=== PATIENT | male | born 1985 | race Caucasian/White ===

== ENCOUNTER 2023-09-20 19:36 | Emergency (ER) | payer SELFPAY ==
[2023-09-20 19:41] VITALS: BP 138/88; PULSE 109; RESP 18; TEMP 36.4; O2SAT 99; BMI 41.1
--- NOTE | 2023-09-20 19:47 | US_ITS ---
[facility] [id number] Patient Name: IBRAHIMA CHEN MRN: [id number] date: 1985 Sex: M Assigned Patient Location: ER Current Patient Location: ED.MAIN Accession/Order Number: [id number] Exam Date: 09/20/2023 20:07 Report Date: 09/20/2023 21:20 At the request of: NELA CHERRY Procedure: US venous doppler LE LT US venous doppler LE LT, 09/20/2023 8:07 PM EST INDICATION: dvt COMPARISON: None available at the time of dictation. FINDINGS: Left lower extremity venous duplex The visualized veins of the venous system of the left lower extremity are within normal limits with regard to spontaneous flow, phasic flow, augmentation and compression. No intraluminal thrombus formation is identified. No superficial venous thrombus is present. US/US venous doppler LE LT IMPRESSION: No evidence of acute deep or superficial venous thrombosis. Electronically authenticated by: RODGER QUINONEZ Date: 09/20/2023 21:20
--- NOTE | 2023-09-20 20:06 | ED.LOWEXI1 ---
HPI - Extremity Injury (Lower) General Chief Complaint: Extremity Injury, Lower Stated Complaint: BLOOD CLOT L FOOT Time Seen by Provider: 09/20/23 19:38 Source: patient Mode of arrival: walk-in History of Present Illness HPI Narrative: Patient is a 37-year-old male who presents to the emergency department with primary concern that he may have a blood clot in his left lower extremity. He states he has chronic intermittent swelling to the lower extremities, he had an ankle fracture with surgical hardware placed approximately 10 years ago to the left lower extremity. He states it is typical for him to have improvement of the swelling on waking after his legs have been elevated. He states for the last 2 weeks he has had no pain, redness or drainage from the left leg but his foot and ankle have been persistently swollen. He admits that today, his swelling is the best that it has been in the last 2 weeks. No medications taken prior to arrival. Related Data Previous Rx's Medication Instructions Recorded ketorolac 10 mg tablet 10 mg PO TID PRN pain #10 tabs 09/20/23 Allergies Allergy/AdvReac Type Severity Reaction Status Date / Time No Known Drug Allergies Allergy Verified 09/20/23 19:46 Review of Systems ROS Constitutional Denies: fever or chills Ears, nose, mouth, and throat Denies: throat pain or nasal congestion Cardiovascular Denies: chest pain Respiratory Denies: shortness of breath or cough Gastrointestinal Denies: nausea or vomiting Musculoskeletal Reports: extremity swelling; Denies: back pain, neck pain or extremity pain Integumentary/Breast Denies: rash Neurological Denies: headache Hematologic/Lymphatic Denies: easy bruising or easy bleeding Exam Narrative Exam Narrative: Gen.: Awake, alert, in no distress Head: Normocephalic, atraumatic ENT: Moist mucous membranes Respiratory: No respiratory distress Extremities: Moves extremities equally, left ankle is diffusely more swollen than the right ankle, there is no pitting edema, no erythema or open wounds. Calves are soft and nontender bilaterally. Psych: Normal mood and affect Neuro: No focal neuro deficit Skin: Warm, dry, intact Constitutional Vital Signs, click to edit/add: Last Vital Signs Temp 97.6 F 09/20/23 19:41 Pulse 109 H 09/20/23 19:41 Resp 18 09/20/23 19:41 BP 138/88 09/20/23 19:41 Pulse Ox 99 09/20/23 19:41 O2 Del Method Room Air 09/20/23 19:41 Course Vital Signs Vital signs: Vital Signs Temperature 97.6 F 09/20/23 19:41 Pulse Rate 109 H 09/20/23 19:41 Respiratory Rate 18 09/20/23 19:41 Blood Pressure 138/88 09/20/23 19:41 Pulse Oximetry 99 09/20/23 19:41 Oxygen Delivery Method Room Air 09/20/23 19:41 Temperature 97.6 F 09/20/23 19:41 Pulse Rate 109 H 09/20/23 19:41 Respiratory Rate 18 09/20/23 19:41 Blood Pressure 138/88 09/20/23 19:41 Pulse Oximetry 99 09/20/23 19:41 Oxygen Delivery Method Room Air 09/20/23 19:41 MDM - Extremity Injury (Lower) MDM Narrative Medical decision making narrative: Ultrasound with no evidence of DVT, labs show elevated inflammatory markers, suspect lower extremity swelling is due to previous surgical hardware and inflammation. Patient will be started on anti-inflammatories for home. Referred to podiatry. Return to the ER if symptoms change or worsen. Medical Records Attestation: I reviewed the patient's medical records. Lab Data Attestation: I reviewed the patient's lab results. Imaging Data Venous US: Attestation: I have reviewed the pertinent imaging results. Radiologist's impression: Procedure: US venous doppler LE LT US venous doppler LE LT, 09/20/2023 8:07 PM EST INDICATION: dvt COMPARISON: None available at the time of dictation. FINDINGS: Left lower extremity venous duplex The visualized veins of the venous system of the left lower extremity are within normal limits with regard to spontaneous flow, phasic flow, augmentation and compression. No intraluminal thrombus formation is identified. No superficial venous thrombus is present. IMPRESSION: No evidence of acute deep or superficial venous thrombosis. Electronically authenticated by: RODGER QUINONEZ Date: 09/20/2023 21:20 Discharge Plan Discharge Chief Complaint: Extremity Injury, Lower Clinical Impression: Left ankle swelling Patient Disposition: Home, Self-Care Time of Disposition Decision: 21:24 Condition: Good Mode of Transportation: Private Vehicle Prescriptions / Home Meds: New ketorolac 10 mg tablet 10 mg PO TID PRN (Reason: pain) Qty: 10 0RF Instructions: Swollen Ankle Joint (ED) Stand Alone Forms: Portal Instructions Referrals: Physician,Non-Staff, MD [Primary Care Provider] - 1 week Discharge Date/Time: 09/20/23 21:35
[2023-09-20 20:17] LABS: Basophils Absolute Auto 0.1 10^3/uL (0.0-0.1); Basophils Percent Auto 0.8 % (0.2-2.0); Eosinophils Absolute Auto 0.3 10^3/uL (0.0-0.7); Eosinophils Percent Auto 2.9 % (0.9-7.0); Hemoglobin 15.3 g/dL (14.0-18.0); Immature Granulocytes Abs Auto 0.03 10^3/uL (0.00-0.03); Immature Granulocytes Pct Auto 0.3 % (0.0-0.5); Lymphocytes Percent Auto 32.2 % (20.5-60.0); Mean Corpuscular HGB Conc 33.3 g/dL (29.9-35.2); Mean Corpuscular Hemoglobin 29.8 pg (25.9-34.0); Mean Corpuscular Volume 89.5 fL (80.0-94.0); Mean Platelet Volume 9.6 fL (9.5-13.5); Monocytes Absolute Auto 0.8 10^3/uL (0.3-0.8); Monocytes Percent Auto 8.2 % (1.7-12.0); Neutrophils Absolute Auto 5.1 10^3/uL (1.4-6.5); Neutrophils Percent Auto 55.6 % (43.0-75.0); Platelet Count 252 10^3/uL (150-450); Red Blood Count 5.14 10^6/uL (4.70-6.10); White Blood Count 9.2 10^3/uL (4.0-11.0)
[2023-09-20 20:20] LABS: Erythrocyte Sedimentation Rate 46 mm/hr (<=15)
[2023-09-20 20:24] LABS: Anion Gap 11.3; BUN Creatinine Ratio 10.7; Calcium 9.2 mg/dL (8.5-10.1); Carbon Dioxide 28.3 mmol/L (21.0-32.0); Chloride 107 mmol/L (98-107); Estimated GFR (African America >60 (>=60); Estimated GFR (Non-African Ame >60 (>=60); Glucose 159 mg/dL (74-106); Potassium 3.6 mmol/L (3.5-5.1); Sodium 143 mmol/L (136-145); Uric Acid 8.4 mg/dL (3.5-7.2)
[2023-09-20 20:32] LABS: C Reactive Protein 0.77 mg/dL (<=0.50)
[2023-09-20 21:34] VITALS: BP 142/88; PULSE 80; RESP 16; O2SAT 97
== END 2023-09-20 21:35 | disposition home or self-care (01) ==
PROVIDERS: Physician Assistant; Emergency Provider Internal Medicine
DX: M79.89 Other specified soft tissue disorders (principal); Z87.81 Personal history of (healed) traumatic fracture
CPT/HCPCS: 36415; 80048; 84550; 85025; 85652; 86140; 93971; 99284